=== PATIENT | female | born 2000 | race Caucasian/White ===

== ENCOUNTER 2023-02-13 15:53 | Emergency (ER) | payer OTHER | END 2023-02-13 20:42 | disposition home or self-care (01) | LOC: DL.ED 15:53 | DX: S60.011A Contusion of right thumb without damage to nail, initial encounter (principal); W23.1XXA Caught, crushed, jammed, or pinched between stationary objects, initial encounter | CPT/HCPCS: 73130-RT; 99282; 99283 ==